=== PATIENT | male | born 1975 | race Caucasian/White ===

== ENCOUNTER 2024-07-01 13:02 | Inpatient (IN) | payer SELFPAY ==
[~2024-07-01] VITALS: Ht 182.9 cm; Wt 94.8 kg
[2024-07-01 13:50] LABS: HEMATOCRIT. 46.6 % (42.0-52.0); HEMOGLOBIN. 15.4 g/dL (14.0-18.0); MEAN CORPUSCULAR HEMOGLOBIN 32.5 pg (28.0-32.0); MEAN CORPUSCULAR VOLUME 98.5 fL (80.0-94.0); MEAN PLATELET VOLUME 8.8 fl (7.4-10.4); PLATELET 285 x1000/uL (130-400); RED BLOOD CELL COUNT 4.73 mill/uL (4.7-6.1); RED CELL DISTRIBUTION WIDTH 13.2 % (11.6-14.6); WHITE BLOOD COUNT 17.6 x1000/uL (4.5-11.0)
[2024-07-01 13:51] LABS: CHLORIDE 101 mEq/L (98-107); DIFFERENTIAL COMMENT 1; POTASSIUM 4.2 mEq/L (3.5-5.1); SODIUM 137 mEq/L (136-145)
[2024-07-01 13:52] LABS: CALCIUM 9.4 mg/dL (8.7-10.4); CARBON DIOXIDE 33 mEq/L (21-32)
[2024-07-01 13:57] LABS: CREATININE 0.9 mg/dL (0.6-1.3); GLUCOSE 121 mg/dL (70-105); UREA NITROGEN BLOOD 7 mg/dL (9-23)
[2024-07-01 13:59] LABS: ALANINE AMINOTRANSFERASE 35 IU/L (10-49); ALBUMIN 4.2 g/dL (3.2-4.8); ASPARTATE AMINOTRANSFERASE 22 IU/L (<34)
[2024-07-01 14:00] LABS: BILIRUBIN TOTAL 1.1 mg/dL (0.1-1.0); PROTEIN TOTAL 8.3 g/dL (6.0-8.3)
[2024-07-01 14:25] LABS: PLATELET ESTIMATE NORMAL
[2024-07-01] MEDS: DEXAMETHASONE 4MG/ML 1ML VIAL IV ONE (14:27)
[2024-07-01] MEDS: KETOROLAC 30MG/ML VIAL IV ONE (14:27)
[2024-07-01] MEDS: AMPICILLIN SOD/SULBACTAM NA 3 G in SODIUM CHLORIDE 0.9% 100 ML IV SCH (15:38)
[2024-07-01] MEDS: IOHEXOL-300 100 ML BOTTLE ONE (15:38)
[2024-07-01] MEDS: VANCOMYCIN 1G PREMIX 200 ML IV SCH (16:15)
[2024-07-01] MEDS: SODIUM CHLORIDE 0.9% 1,000 ML IV ONE (17:17)
[2024-07-01] MEDS ORDERED: RACEPINEPHRINE 2.25% 0.5ML NEB VIAL HHN PRN (17:45)
[2024-07-01 18:01] LABS: BG BASE EXCESS 0.3 mmol/L (-2.0-3.0); BG CARBOXYHEMOGLOBIN 1.1 % (0.5-1.5); BG DEOXYHEMOGLOBIN 2.8 % (0.0-5.0); BG FRACTION INSPIRED OXYGEN 21; BG HCO3 ACT 24.7 mmol/L (21.0-28.0); BG OXYGEN SATURATION 97.2 % (94.0-98.0); BG OXYHEMOGLOBIN 96.1 % (94.0-98.0); BG PCO2 39.3 mmHg (35.0-48.0); BG PH 7.417 (7.350-7.450); BG PO2 89.7 mmHg (83.0-108.0); BG SAMPLE SITE RIGHT BRACHIAL; BG TOTAL HEMOGLOBIN 14.9 g/dL (13.5-17.5); BG VENT MODE ROOM AIR
[2024-07-01] MEDS: METHYLPREDNISOLONE SOD SUCC 40MG/ML (ACT-O-VIAL) IV SCH (18:11)
[2024-07-01] MEDS: SODIUM CHLORIDE 0.9% 1,000 ML IV SCH (18:11)
[2024-07-01] MEDS: VANCOMYCIN 1.25GM PMX (XELLIA) 250 ML IV SCH (20:37)
[2024-07-01] MEDS ORDERED: ONDANSETRON HCL 4MG/2ML INJ IV PRN (22:15)
[2024-07-01] MEDS ORDERED: ACETAMINOPHEN 325MG TABLET PO PRN (22:15)
[2024-07-01] MEDS ORDERED: ZOLPIDEM TARTRATE 5MG TABLET PO PRN (22:15)
[2024-07-01] MEDS ORDERED: HYDRALAZINE 20MG/ML VIAL IV PRN (22:15)
[2024-07-01 23:00] VITALS: BP 98/53; PULSE 70; PULSE 72; RESP 16; TEMP 36.8; O2SAT 98
[2024-07-02] VITALS (12 sets, daily range): BP systolic 103–136; BP diastolic 54–101; PULSE 67–96; RESP 11–22; TEMP 36.5–36.9; O2SAT 94–99
[2024-07-02 02:56] LABS: *AMPHETAMINES SCREEN URINE NEGATIVE (NEGATIVE)
[2024-07-02 02:57] LABS: *BARBITURATES SCREEN URINE NEGATIVE (NEGATIVE); *BENZODIAZEPINES SCREEN URINE NEGATIVE (NEGATIVE); *COCAINE SCREEN URINE PRESUMPTIVE POSITIVE (NEGATIVE); CANNABINOID URINE SCREEN NEGATIVE (NEGATIVE); ECSTASY MDMA SCREEN URINE NEGATIVE (NEGATIVE); METHADONE URINE SCREEN NEGATIVE (NEGATIVE); OPIATES URINE SCREEN NEGATIVE (NEGATIVE); PHENCYCLIDINE URINE SCREEN NEGATIVE (NEGATIVE)
[2024-07-02 06:13] LABS: CARBON DIOXIDE 28 mEq/L (21-32); CHLORIDE 108 mEq/L (98-107); POTASSIUM 4.5 mEq/L (3.5-5.1); SODIUM 142 mEq/L (136-145)
[2024-07-02 06:14] LABS: CALCIUM 9.2 mg/dL (8.7-10.4)
[2024-07-02 06:19] LABS: CREATININE 0.7 mg/dL (0.6-1.3); GLUCOSE 131 mg/dL (70-105); UREA NITROGEN BLOOD 9 mg/dL (9-23)
[2024-07-02 07:39] LABS: HEMATOCRIT. 44.4 % (42.0-52.0); HEMOGLOBIN. 15.1 g/dL (14.0-18.0); MEAN CORPUSCULAR HEMOGLOBIN 33.6 pg (28.0-32.0); MEAN CORPUSCULAR HGB CONC 33.9 g/dL (31.0-37.0); MEAN CORPUSCULAR VOLUME 99.3 fL (80.0-94.0); MEAN PLATELET VOLUME 9.7 fl (7.4-10.4); PLATELET 244 x1000/uL (130-400); RED BLOOD CELL COUNT 4.47 mill/uL (4.7-6.1); RED CELL DISTRIBUTION WIDTH 13.2 % (11.6-14.6); WHITE BLOOD COUNT 17.7 x1000/uL (4.5-11.0)
[2024-07-02 08:21] LABS: DIFFERENTIAL COMMENT 1
[2024-07-02 11:30] LABS: PLATELET ESTIMATE NORMAL
[2024-07-02] MEDS: ENOXAPARIN 30MG/0.3ML SYR SUBCUT SCH (11:35)
[2024-07-02] MEDS: KETOROLAC 30MG/ML VIAL IV SCH (16:44)
[2024-07-03 06:16] LABS: CHLORIDE 109 mEq/L (98-107); POTASSIUM 4.1 mEq/L (3.5-5.1); SODIUM 142 mEq/L (136-145)
[2024-07-03 06:17] LABS: CALCIUM 8.7 mg/dL (8.7-10.4); CARBON DIOXIDE 27 mEq/L (21-32)
[2024-07-03 06:20] LABS: HEMATOCRIT. 41.6 % (42.0-52.0); HEMOGLOBIN. 14.2 g/dL (14.0-18.0); MEAN CORPUSCULAR HEMOGLOBIN 33.5 pg (28.0-32.0); MEAN CORPUSCULAR VOLUME 98.6 fL (80.0-94.0); MEAN PLATELET VOLUME 9.4 fl (7.4-10.4); PLATELET 260 x1000/uL (130-400); RED BLOOD CELL COUNT 4.22 mill/uL (4.7-6.1); RED CELL DISTRIBUTION WIDTH 12.9 % (11.6-14.6); WHITE BLOOD COUNT 19.2 x1000/uL (4.5-11.0)
[2024-07-03 06:22] LABS: CREATININE 0.8 mg/dL (0.6-1.3); GLUCOSE 132 mg/dL (70-105); UREA NITROGEN BLOOD 17 mg/dL (9-23)
[2024-07-03 07:09] LABS: DIFFERENTIAL COMMENT 1
[2024-07-03 08:00] VITALS: BP 113/70; PULSE 78; RESP 16; TEMP 36.5; O2SAT 98
[2024-07-03 12:00] VITALS: BP 119/59; PULSE 82; RESP 17; TEMP 37.5; O2SAT 98
[2024-07-03] MEDS: VANCOMYCIN 1.25GM PMX (XELLIA) 250 ML IV SCH (12:00)
[2024-07-03 13:13] LABS: PLATELET ESTIMATE NORMAL
[2024-07-03 16:00] VITALS: BP 108/68; PULSE 78; RESP 16; TEMP 36.6; O2SAT 98
[2024-07-03] MEDS: CEFTRIAXONE 2GM/50ML 50ML IV SCH (16:00)
[2024-07-03 20:00] VITALS: BP 127/71; PULSE 70; RESP 19; TEMP 36.7; O2SAT 100
[2024-07-04] VITALS: BP 106/95; PULSE 66; RESP 19; TEMP 36.3; O2SAT 98
[2024-07-04 04:00] VITALS: BP 113/50; PULSE 67; RESP 19; TEMP 36.3; O2SAT 100
[2024-07-04 07:20] LABS: CHLORIDE 106 mEq/L (98-107); POTASSIUM 4.2 mEq/L (3.5-5.1); SODIUM 143 mEq/L (136-145)
[2024-07-04 07:21] LABS: CARBON DIOXIDE 29 mEq/L (21-32)
[2024-07-04 07:22] LABS: CALCIUM 8.7 mg/dL (8.7-10.4)
[2024-07-04 07:26] LABS: CREATININE 0.9 mg/dL (0.6-1.3); GLUCOSE 121 mg/dL (70-105); UREA NITROGEN BLOOD 13 mg/dL (9-23)
[2024-07-04 08:00] VITALS: PULSE 71; RESP 18; TEMP 36.1; O2SAT 98
[2024-07-04 08:18] LABS: HEMATOCRIT. 43.9 % (42.0-52.0); HEMOGLOBIN. 14.6 g/dL (14.0-18.0); MEAN CORPUSCULAR HEMOGLOBIN 33.5 pg (28.0-32.0); MEAN CORPUSCULAR HGB CONC 33.3 g/dL (31.0-37.0); MEAN CORPUSCULAR VOLUME 100.6 fL (80.0-94.0); MEAN PLATELET VOLUME 9.6 fl (7.4-10.4); PLATELET 276 x1000/uL (130-400); RED BLOOD CELL COUNT 4.36 mill/uL (4.7-6.1); RED CELL DISTRIBUTION WIDTH 13.1 % (11.6-14.6); WHITE BLOOD COUNT 12.8 x1000/uL (4.5-11.0)
[2024-07-04 09:10] LABS: DIFFERENTIAL COMMENT 1
[2024-07-04 12:00] VITALS: BP 123/66; PULSE 79; RESP 18; TEMP 36.1; O2SAT 97
[2024-07-04] MEDS ORDERED: IBUP-1525 MT (12:41)
[2024-07-04] MEDS ORDERED: AMOX1TAB16 MT (12:41)
[2024-07-04] MEDS ORDERED: METH4TAB95 MT (12:41)
[2024-07-04 16:00] VITALS: BP 128/84; PULSE 81; RESP 18; TEMP 36.7; O2SAT 98
[2024-07-04 16:18] VITALS: BP 145/88; PULSE 75; TEMP 95.3; O2SAT 95
[2024-07-04 18:11] LABS: PLATELET ESTIMATE NORMAL
== END 2024-07-04 17:00 | disposition home or self-care (01) | DRG 720 ==
LOC: ER 13:02 → EDBEDREQSVC 15:42 → EDBEDREQTM 15:42 → CVICU 16:53 → EDBEDREQTM 17:15 → EDBEDREQ 17:15 → 6WST 07-02 15:03
PROVIDERS: ADMIT Internal Medicine; ATTEND Internal Medicine
DX: A41.9 Sepsis, unspecified organism (principal); J05.10 Acute epiglottitis without obstruction; J68.0 Bronchitis and pneumonitis due to chemicals, gases, fumes and vapors; R13.10 Dysphagia, unspecified; F14.90 Cocaine use, unspecified, uncomplicated; J38.7 Other diseases of larynx
CPT/HCPCS: 36415; 36600; 70491; 71045; 80048; 80053; 80202; 80305; 82375; 82805; 85025; 87070; 87430; 93970; 99291; J0295; J0696; J1100; J1650; J1885; J2920; J3370; J7030; J7050; Q9967